=== PATIENT | male | born 1995 | race African-American/Black ===

== ENCOUNTER 2019-10-10 08:59 | Emergency (ER) | payer SELFPAY ==
[2019-10-10] MEDS ORDERED: Acetaminophen 500 MG TAB ONE (09:15)
== END 2019-10-10 09:22 | disposition home or self-care (01) ==
LOC: BURERS 08:59
DX: S02.5XXA Fracture of tooth (traumatic), initial encounter for closed fracture (principal); V80.010A Animal-rider injured by fall from or being thrown from horse in noncollision accident, initial encounter
CPT/HCPCS: 99283

== ENCOUNTER 2019-10-17 07:45 | Emergency (ER) | payer SELFPAY ==
[2019-10-17] MEDS ORDERED: Ondansetron ODT 4 MG TAB ONE (08:24)
[2019-10-17] MEDS ORDERED: Hyoscyamine Sulfate SL 0.125 mg Tablet ONE (09:20)
== END 2019-10-17 09:21 | disposition home or self-care (01) ==
LOC: BURERS 07:45
DX: A08.4 Viral intestinal infection, unspecified (principal)
CPT/HCPCS: 99283; Q0162

== ENCOUNTER 2019-11-22 09:19 | Emergency (ER) | payer SELFPAY ==
--- NOTE | 2019-11-22 09:51 | RAD ---
Exam: Chest one view Right RIBS 3 views HISTORY: Pain FINDINGS: Chest one view: Normal cardiac silhouette. Lungs and pleural spaces are clear. No pneumothorax or oss eous abnormalities Right rib series: No fracture, cortical irregularity or periosteal reaction IMPRESSION: 1. No acute cardiopulmonary process. 2. No evidence of a right-sided rib fracture.
== END 2019-11-22 09:51 | disposition home or self-care (01) ==
LOC: BURERS 09:19
DX: S20.211A Contusion of right front wall of thorax, initial encounter (principal); F17.210 Nicotine dependence, cigarettes, uncomplicated; W22.8XXA Striking against or struck by other objects, initial encounter

== ENCOUNTER 2021-09-20 18:02 | Emergency (ER) | payer OTHER, SELFPAY | END 2021-09-20 19:04 | disposition home or self-care (01) | LOC: BURERS 18:02 | DX: S00.03XA Contusion of scalp, initial encounter (principal); F17.210 Nicotine dependence, cigarettes, uncomplicated; W22.8XXA Striking against or struck by other objects, initial encounter | CPT/HCPCS: 70450 ==